=== PATIENT | male | born 1985 | race Caucasian/White ===

== ENCOUNTER 2018-09-29 15:03 | Emergency (ER) | payer OTHER ==
[2018-09-29 15:07] VITALS: BP 164/110; PULSE 77; RESP 16; TEMP 97.5
--- NOTE | 2018-09-29 15:41 | ED ---
General Adult HPI - General Chief complaint: Extremity Injury, Upper Stated complaint: shoulder injury-[facility] Time Seen by Provider: 09/29/18 15:14 Source: patient Mode of arrival: ambulatory Limitations: no limitations - History of Present Illness Initial comments: Patient is a 33-year-old male presenting to emergency Department with a chief complaint of right shoulder pain. Patient reports he was at work when he lifted an object and he felt a "snap" which caused immediate pain. Patient also reports that he is unable to lift his right arm above 20. Patient reports the pain is alleviated at rest. Patient denies any numbness or tingling. Patient reports the pain does not radiate anywhere. Patient reports the pain is located on the posterior aspect of the right shoulder and is only exacerbated with movements. - Related Data Previous Rx's Medication Instructions Recorded Acetaminophen-Codeine 300-30mg 1 each PO Q6H PRN #18 tablet 06/04/14 [Tylenol #3] Ibuprofen [Motrin] 800 mg PO Q8HR #30 tab 06/04/14 Allergies Allergy/AdvReac Type Severity Reaction Status Date / Time No Known Allergies Allergy Verified 09/29/18 15:07 Review of Systems ROS Statement: Those systems with pertinent positive or pertinent negative responses have been documented in the HPI. ROS Other: All systems not noted in ROS Statement are negative. Past Medical History Past Medical History: GERD/Reflux, Skin Disorder Additional Past Medical History / Comment(s): athletes foot History of Any Multi-Drug Resistant Organisms: None Reported Past Surgical History: Hernia Repair Additional Past Surgical History / Comment(s): hiatal herniar repair Past Anesthesia/Blood Transfusion Reactions: Motion Sickness Past Psychological History: No Psychological Hx Reported Smoking Status: Current every day smoker Past Alcohol Use History: None Reported Past Drug Use History: None Reported General Exam - General Exam Comments Initial Comments: General: Well-developed well-nourished distress HEENT: Normocephalic/atraumatic, PERLL, pharynx erythema, swallowing well, EAC no erythema, no exudates, TM clear, no cervical lymph nodes Neck: Supple, nontender, trachea midline Chest/Lungs: Normal respirations, no signs of respiratory distress clear to auscultation bilaterally no wheezes, rales, rhonchi Cardiac: Regular rate and rhythm, normal S1-S2, no murmurs rubs or gallops Abdomen/GI: Soft nontender, bowel sounds equal or quadrant x4, no guarding, no rebound no CVA tenderness Musculoskeletal: Tenderness near the teres minor and teres major of the right shoulder, limited range of motion with abduction above 20, +2 ulnar and radial pulses bilaterally, normal capillary refill, no bony deformity Skin: Warmth, no rashes or lesions, no cyanosis or diaphoresis Neurologic: AAO x 3, CN 2-12 intact, Psychiatric: Mood and affect normal, judgment normal Limitations: no limitations Course Vital Signs 09/29/18 15:05 Temperature 97.5 F L Pulse Rate 77 Respiratory 16 Rate Blood Pressure 164/110 O2 Sat by Pulse 97 Oximetry Medical Decision Making - Medical Decision Making Patient is a 33-year-old male presents emergency Department with a chief complaint of right shoulder pain. X-ray of the right shoulder is negative for acute fracture or dislocations. Patient does not appear to have any bony deformities. Patient given a sling. Patient advised to follow with orthopedics in 1-2 days if symptoms not improved. Based on history, physical examination and imaging I suspect the patient to have suffered damage to the rotator cuff muscles. Patient advised to alternate between Tylenol and ibuprofen for pain control and apply ice compress to minimize symptoms. Strict return parameters were thoroughly discussed the patient was understanding and agreeable. Case discussed with physician. Disposition Clinical Impression: Shoulder pain, acute Disposition: HOME SELF-CARE Condition: Stable Instructions (If sedation given, give patient instructions): Shoulder Pain (ED) Additional Instructions: Please follow up with orthopedics. Alternate between Tylenol and ibuprofen for pain control. Apply ice compresses to minimize symptoms. Please return to emergency department if symptoms worsen. Is patient prescribed a controlled substance at d/c from ED?: No Referrals: Anastasiya Carlos MD [Primary Care Provider] - 1-2 days Conrad Luna DO [Medical Doctor] - 1-2 days Time of Disposition: 16:11
--- NOTE | 2018-09-29 15:41 | XR ---
EXAMINATION TYPE: XR shoulder complete RT DATE OF EXAM: 09/29/2018 CLINICAL HISTORY: Pain in right shoulder after injury. TECHNIQUE: Three views of the right shoulder are obtained. COMPARISON: None. FINDINGS: There is no acute fracture/dislocation evident in the right shoulder. The acromioclavicul ar and glenohumeral joint spaces appear within normal limits. The visualized ribs are intact and unr emarkable. IMPRESSION: There is no acute fracture or dislocation in the right shoulder.
== END 2018-09-29 16:21 | disposition home or self-care (01) ==
LOC: EC 15:03
DX: M25.511 Pain in right shoulder (principal); F17.200 Nicotine dependence, unspecified, uncomplicated
CPT/HCPCS: 99283

== ENCOUNTER → 2018-10-27 | Outpatient (CLI) | payer OTHER ==
--- NOTE | 2018-10-28 14:53 | MR ---
EXAMINATION TYPE: MR shoulder RT wo con DATE OF EXAM: 10/27/2018 COMPARISON: Radiograph dated 319 HISTORY: Right shoulder pain TECHNIQUE: Multiplanar, multisequence imaging of the right shoulder is performed without contrast. FINDINGS: Congruent acromioclavicular joint. Flat acromial undersurface. Mild acromioclavicular joint hypertrop hy. Distal clavicular edema-like bone marrow signal with nondepressed subchondral line compatible wit h subchondral fracture. Small volume of subacromial/subdeltoid bursal fluid. Increased signal within the bursal fibers of sup raspinatus favors mild tendinosis. No high-grade or full-thickness rotator cuff tear. Intact long head biceps tendon. No labral tear identified. No glenohumeral cartilage lesion identified. Intact capsular ligaments. No glenohumeral joint effusion. Edema like signal within teres minor with few fatty streaks compatible with denervation myositis. No compressing lesion is seen along the course of the axillary nerve. Prominent red bone marrow throughout the humerus. No pathologic bone marrow signal replacement. IMPRESSION: 1. Subacute denervation myositis of teres minor. No compressing lesion is seen along the course of th e axillary nerve. 2. Distal clavicular subchondral fracture. 3. No high-grade or full-thickness rotator cuff tear. 4. Mild supraspinatus tendinosis with subacromial/subdeltoid bursitis.
== END | disposition home or self-care (01) ==
LOC: RADMRIMAIN 07:10
PROVIDERS: ATTEND Emergency Medicine
DX: S42.031A Displaced fracture of lateral end of right clavicle, initial encounter for closed fracture (principal)

== ENCOUNTER → 2019-01-05 | Outpatient (CLI) | payer OTHER ==
[2019-01-05 17:50] LABS: African American GFR (CKD) 112.5 (60.0-200.0); Anion Gap 2.7 mmol/L (4.00-12.00); Calcium 8.5 mg/dL (8.7-10.3); Carbon Dioxide 29.3 mmol/L (21.6-31.8); Chol/HDL Ratio 4.81; LDL Cholesterol,Calculated 113.4 mg/dL (0.0-131.0); Potassium 4.7 mmol/L (3.5-5.5); VLDL Calculation 23.6 mg/dL (5.00-40.00)
== END | disposition home or self-care (01) ==
LOC: LABWHC1 10:51
PROVIDERS: ATTEND Family Medicine
DX: I10 Essential (primary) hypertension (principal); Z72.0 Tobacco use
CPT/HCPCS: 36415; 80048; 80061

== ENCOUNTER 2021-04-09 20:03 | Emergency (ER) | payer OTHER ==
[2021-04-09 21:05] VITALS: BP 119/67; PULSE 84; RESP 20; TEMP 98
--- NOTE | 2021-04-09 23:09 | XR ---
EXAMINATION TYPE: XR ribs RT w pa chest xray DATE OF EXAM: 04/09/2021 COMPARISON: NONE HISTORY: Rib pain TECHNIQUE: 5 views FINDINGS: Heart and mediastinum are normal. Lungs are clear of infiltrate. There is no evidence of pl eural effusion or pneumothorax. Right shoulder is intact. There is nondisplaced fracture anterior rig ht seventh rib. IMPRESSION: Acute fracture anterior right seventh rib. No cardiopulmonary disease.
[2021-04-09] MEDS ORDERED: LIDOCAINE 5% PATCH TOPICAL STA (23:55)
[2021-04-09] MEDS ORDERED: KETOROLAC 15 MG/ML 1 ML VIAL IM STA (23:55)
[2021-04-09] MEDS ORDERED: ACET/COD 300 MG/30 MG STARTER PACK 6 TAB BTL PO STA (23:55)
--- NOTE | 2021-04-09 23:57 | ED ---
Fall HPI - General Chief Complaint: Fall Stated Complaint: Fell and hit right side, RT side pain Time Seen by Provider: 04/09/21 23:54 Source: patient Mode of arrival: ambulatory - History of Present Illness Initial Comments: 36-year-old male patient presents the emergency department today for evaluation of right rib pain after a fall. Patient states that he slipped on the ice getting into his car and he fell on top of his metal coffee mug. States that the coffee mug dug into his right ribs. States has been having pain to the area since. Follow occurred earlier this morning prior to him going to work. He denies hitting his head or losing consciousness with the fall. He denies any extremity injury. Denies any neck or back pain. Denies any shortness of breath. Denies cough or hemoptysis. States pain does worsen when he takes a deep breath and moves in certain positions. States he did take Advil earlier in the day. - Related Data Previous Rx's Medication Instructions Recorded Acetaminophen-Codeine 300-30mg 1 each PO Q6H PRN #18 tablet 06/04/14 [Tylenol #3] Ibuprofen [Motrin] 800 mg PO Q8HR #30 tab 06/04/14 Acetaminophen-Codeine 300-30mg 1 tab PO Q6H PRN #12 tablet 04/10/21 [Tylenol #3] Ibuprofen [Motrin] 600 mg PO Q8HR PRN #30 tab 04/10/21 Lidocaine 5% Patch [Lidoderm] 1 patch TOPICAL DAILY #30 patch 04/10/21 Allergies Allergy/AdvReac Type Severity Reaction Status Date / Time No Known Allergies Allergy Verified 04/09/21 21:03 Review of Systems ROS Statement: Those systems with pertinent positive or pertinent negative responses have been documented in the HPI. ROS Other: All systems not noted in ROS Statement are negative. Past Medical History Past Medical History: GERD/Reflux, Skin Disorder Additional Past Medical History / Comment(s): athletes foot History of Any Multi-Drug Resistant Organisms: None Reported Past Surgical History: Hernia Repair Additional Past Surgical History / Comment(s): hiatal herniar repair Past Anesthesia/Blood Transfusion Reactions: Motion Sickness Past Psychological History: No Psychological Hx Reported Smoking Status: Current every day smoker Past Alcohol Use History: Occasional Past Drug Use History: None Reported General Exam Limitations: no limitations General appearance: alert, in no apparent distress, other (This is a well- developed, well-nourished adult male in no acute distress.) Respiratory exam: Present: normal lung sounds bilaterally, chest wall tenderness (Right anterolateral lower ribs). Absent: respiratory distress, wheezes, rales, rhonchi, stridor Cardiovascular Exam: Present: regular rate, normal rhythm, normal heart sounds. Absent: systolic murmur, diastolic murmur, rubs, gallop, clicks GI/Abdominal exam: Present: soft, normal bowel sounds. Absent: distended, tenderness, guarding, rebound, rigid Neurological exam: Present: alert, oriented X3, CN II-XII intact Psychiatric exam: Present: normal affect, normal mood Skin exam: Present: warm, dry, intact, normal color. Absent: rash Course Vital Signs 04/09/21 21:03 Temperature 98.0 F Pulse Rate 84 Respiratory 20 Rate Blood Pressure 119/67 O2 Sat by Pulse 98 Oximetry Medical Decision Making - Medical Decision Making 36-year-old male patient presented to the emergency department today for evaluation of right rib pain after fall injury. Physical examination did reveal right anterolateral rib tenderness. Lungs are clear to auscultation. Vital signs within normal range. Chest x-ray with rib x-rays were obtained and did reveal a right anterior seventh rib fracture. He'll be treated with anti- inflammatory, Tylenol with Codeine, and Lidoderm patches. He is given incentive spirometer for pneumonia prevention. Discharge and follow-up with his primary care physician for recheck in 1-2 days. He is given work restrictions. Return parameters were discussed in detail. He verbalizes understanding and agrees with this plan. My attending is Dr. Hollis. - Radiology Data Radiology results: report reviewed, image reviewed Impression by Dr. Hutson shows acute fracture anterior right seventh rib. No cardiopulmonary disease. Disposition Clinical Impression: Right rib fracture Disposition: HOME SELF-CARE Condition: Good Instructions (If sedation given, give patient instructions): How to Use an Incentive Spirometer (ED), Rib Fracture (ED) Additional Instructions: Apply ice to the painful area. No lifting for the next 4-6 weeks. Follow-up with her primary care physician for recheck in 1-2 days. Return for any new, worsening, or concerning symptoms. Prescriptions: Lidocaine 5% Patch [Lidoderm] 1 patch TOPICAL DAILY #30 patch Ibuprofen [Motrin] 600 mg PO Q8HR PRN #30 tab PRN Reason: Pain Acetaminophen-Codeine 300-30mg [Tylenol #3] 1 tab PO Q6H PRN #12 tablet PRN Reason: Pain Is patient prescribed a controlled substance at d/c from ED?: No Referrals: Ten Rosa [Primary Care Provider] - 1-2 days Time of Disposition: 23:57
== END 2021-04-10 00:17 | disposition home or self-care (01) ==
LOC: EC 20:03
DX: S22.31XA Fracture of one rib, right side, initial encounter for closed fracture (principal); F17.200 Nicotine dependence, unspecified, uncomplicated; W00.0XXA Fall on same level due to ice and snow, initial encounter; Y92.89 Other specified places as the place of occurrence of the external cause
CPT/HCPCS: 71101; 99284; 96372; J1885

== ENCOUNTER 2021-11-24 15:35 | Emergency (ER) | payer OTHER ==
[2021-11-24 17:37] VITALS: RESP 16; TEMP 98.4
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
[2021-11-24 20:19] VITALS: BP 146/80; PULSE 79
== END 2021-11-24 20:18 | disposition home or self-care (01) ==
LOC: EC 15:35
DX: T74.11XA Adult physical abuse, confirmed, initial encounter (principal); K21.9 Gastro-esophageal reflux disease without esophagitis; F17.200 Nicotine dependence, unspecified, uncomplicated; Z79.899 Other long term (current) drug therapy; Y04.8XXA Assault by other bodily force, initial encounter
CPT/HCPCS: 99284

== ENCOUNTER → 2021-12-02 | Outpatient (CLI) | payer OTHER ==
--- NOTE | 2021-12-02 16:36 | XR ---
EXAMINATION TYPE: XR chest 2V DATE OF EXAM: 12/02/2021 COMPARISON: Chest x-ray April 09, 2021 HISTORY: Chest pain after injury. TECHNIQUE: Frontal and lateral views of the chest are obtained. FINDINGS: There is no suspicious focal air space opacity, pleural effusion, or pneumothorax seen. T he cardiac silhouette size is stable and within normal limits. The osseous structures are intact. IMPRESSION: No acute process. No significant change from prior.
--- NOTE | 2021-12-02 16:37 | XR ---
EXAMINATION TYPE: XR forearm RT DATE OF EXAM: 12/02/2021 CLINICAL HISTORY: Injury with pain TECHNIQUE: Two views of the right forearm are obtained. COMPARISON: None. FINDINGS: There is no acute fracture or dislocation seen in the right radius or ulna. The right elb ow and wrist joints appear within normal limits. The overlying soft tissue appears within normal ribeiro its. IMPRESSION: There is no acute fracture or dislocation seen in the right radius or ulna.
== END | disposition home or self-care (01) ==
LOC: RADXRMAIN 16:04
PROVIDERS: ATTEND Emergency Medicine
DX: S29.001A Unspecified injury of muscle and tendon of front wall of thorax, initial encounter (principal); S50.11XA Contusion of right forearm, initial encounter
CPT/HCPCS: 71046

== ENCOUNTER → 2022-06-13 | Outpatient (CLI) | payer OTHER ==
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
== END | disposition home or self-care (01) ==
LOC: RADUSWWP 13:05
PROVIDERS: ATTEND Emergency Medicine
DX: S30.22XA Contusion of scrotum and testes, initial encounter (principal); N43.3 Hydrocele, unspecified
CPT/HCPCS: 76870; 93975

== ENCOUNTER 2022-10-01 05:25 | Emergency (ER) | payer OTHER ==
[2022-10-01 05:31] VITALS: RESP 16; TEMP 98.1
[2022-10-01] MEDS ORDERED: DEXAMETHASONE SOD PHOSPHATE 10 MG/ML 1 ML VIAL IM STA (06:20)
--- NOTE | 2022-10-01 06:22 | ED ---
ENT HPI - General Chief complaint: Allergic Reaction Stated complaint: Allergic Reaction, Facial Swelling Time Seen by Provider: 10/01/22 05:55 Source: patient, RN notes reviewed Mode of arrival: ambulatory Limitations: no limitations - History of Present Illness Initial comments: This is a 37 year old male who presents to the emergency department for concerns of an allergic reaction. Patient states that when he woke up, he had numbness and swelling to the right side of his face, particularly his right lower lip. He has minor tenderness. Also states that his eye is watering, but is not painful. Denies any substantial itching. Patient is not taking any Chris inhibitors. Patient denies any new medications. Also denies coming in contact with any new soaps, lotions, or detergents. Denies any dental pain. Patient did have chickenpox as a kid. Denies any fevers, chills, sore throat, cough, dyspnea, chest pain, palpitations, abdominal pain, nausea, vomiting, diarrhea, back pain, or headaches. - Related Data Previous Rx's Medication Instructions Recorded Acetaminophen-Codeine 300-30mg 1 each PO Q6H PRN #18 tablet 06/04/14 [Tylenol #3] Ibuprofen [Motrin] 800 mg PO Q8HR #30 tab 06/04/14 Acetaminophen-Codeine 300-30mg 1 tab PO Q6H PRN #12 tablet 04/10/21 [Tylenol #3] Ibuprofen [Motrin] 600 mg PO Q8HR PRN #30 tab 04/10/21 Lidocaine 5% Patch [Lidoderm] 1 patch TOPICAL DAILY #30 patch 04/10/21 predniSONE 50 mg PO DAILY 5 Days #5 tab 10/01/22 valACYclovir HCL [Valacyclovir] 1,000 mg PO Q8H 7 Days #21 tab 10/01/22 Allergies Allergy/AdvReac Type Severity Reaction Status Date / Time No Known Allergies Allergy Verified 11/24/21 17:37 Review of Systems ROS Statement: Those systems with pertinent positive or pertinent negative responses have been documented in the HPI. ROS Other: All systems not noted in ROS Statement are negative. Past Medical History Past Medical History: GERD/Reflux, Skin Disorder Additional Past Medical History / Comment(s): athletes foot History of Any Multi-Drug Resistant Organisms: None Reported Past Surgical History: Hernia Repair Additional Past Surgical History / Comment(s): hiatal herniar repair Past Anesthesia/Blood Transfusion Reactions: Motion Sickness Past Psychological History: No Psychological Hx Reported Smoking Status: Current every day smoker Past Alcohol Use History: Occasional Past Drug Use History: None Reported General Exam Limitations: no limitations General appearance: alert, in no apparent distress Head exam: Present: atraumatic, normocephalic, normal inspection Eye exam: Present: normal appearance, PERRL, EOMI. Absent: scleral icterus, conjunctival injection, periorbital swelling ENT exam: Present: other (Mild fullness to the right side of the lower face. Visible and palpable swelling to the right half of the lower lip. Multiple dental caries without any palpable or visible dental abscess. No obvious rash.) Respiratory exam: Present: normal lung sounds bilaterally. Absent: respiratory distress, wheezes, rales, rhonchi, stridor Cardiovascular Exam: Present: regular rate, normal rhythm, normal heart sounds. Absent: systolic murmur, diastolic murmur, rubs, gallop, clicks Neurological exam: Present: alert, oriented X3, CN II-XII intact Psychiatric exam: Present: normal affect, normal mood Skin exam: Present: warm, dry, intact, normal color. Absent: rash Course Vital Signs 10/01/22 05:27 Temperature 98.1 F Pulse Rate 102 H Respiratory 16 Rate Blood Pressure 122/79 O2 Sat by Pulse 97 Oximetry Medical Decision Making - Medical Decision Making This is a 37-year-old male who presents to the emergency department for right- sided facial swelling and tingling. Was pt. sent in by a medical professional or institution? @ -No Did you speak to anyone other than the patient for history? @ -No Did you review nursing and triage notes? @ -Yes, and I agree, it is accurate with regards to the patient's symptoms. Were old charts reviewed? @ -No Differential Diagnosis? @ -Differential Facial Swelling/Tingling: Cellulitis, dental abscess, Mendoza's Palsy, CVA/TIA, shingles EKG interpreted by me (3pts min.)? @ -Not obtained X-rays interpreted by me (1pt min.)? @ -Not obtained CT interpreted by me (1pt min.)? @ -Not obtained U/S interpreted by me (1pt. min.)? @ -Not obtained What testing was considered but not performed? (CT, X-rays, U/S, labs)? Why? @ -None What meds were considered but not given? Why? @ -None Did you discuss the management of the patient with other professionals? @ -No Did you reconcile home meds? @ -No Was smoking cessation discussed for >3mins.? @ -No Was critical care preformed (if so, how long)? @ -No Were there social determinants of health that impacted care today? How? (Homelessness, low income, unemployed, alcoholism, drug addiction, transportation, low edu. Level, literacy, decrease access to med. care, [facility], rehab)? @ -No Was there de-escalation of care discussed even if they declined? (Discuss DNR or withdrawal of care, Hospice)? @ -No What co-morbidities impacted this encounter? (DM, HTN, Smoking, COPD, CAD, Cancer, CVA, Hep., AIDS, mental health diagnosis, sleep apnea, morbid obesity)? @ -None Was patient admitted / discharged? @ -Discharged. Patient's physical examination does not provide an entirely clear etiology. The unilateral involvement is less likely to be related to an allergic reaction. I am unable to palpate a dental abscess and this does not appear to be localized near a tooth. It is possible that this is the early presentation of shingles given the unilateral involvement. This was discussed with the patient. We will go ahead and treat the patient for shingles. Rx for Valtrex provided with dosing instructions reviewed. He is advised to take this with Benadryl. He was also given a prescription for prednisone. Advised that if symptoms do not improve within 2 days, to start taking the Prednisone. He was given very strict return parameters, in that if symptoms worsen, especially if he develops any airway involvement, he should return to the emergency department immediately. He was otherwise advised to follow up with his PCP for reevaluation. Undiagnosed new problem with uncertain prognosis? @ -None Drug Therapy requiring intensive monitoring for toxicity (Heparin, Nitro, Insulin, Cardizem)? @ -None Were any procedures done? @ -None Diagnosis/symptom? @ -Facial swelling Acute, or Chronic, or Acute on Chronic? @ -Acute Uncomplicated (without systemic symptoms) or Complicated (systemic symptoms)? @ -Uncomplicated Side effects of treatment? @ -None Exacerbation, Progression, or Severe Exacerbation] @ -Not applicable Poses a threat to life or bodily function? @ -No Return precautions reviewed in depth, the patient is instructed to return to the emergency department with any new, worsening, or concerning symptoms. Patient verbalized understanding. This case was discussed in detail with the attending ED physician, Dr. Duran. Presentation, findings, and treatment plan discussed in detail as well. Disposition Clinical Impression: Facial swelling Disposition: HOME SELF-CARE Instructions (If sedation given, give patient instructions): Shingles (ED) Additional Instructions: Return to the emergency department with any new, worsening, or concerning symptoms. Take the Valtrex as prescribed for 7 days. Take this along with Benadryl. If you do not have any improvement in symptoms after 2 days, start taking the prednisone daily for 5 days. Alternate with ibuprofen and Tylenol as needed for pain relief. Follow up with your primary care provider in 1-2 days. Prescriptions: predniSONE 50 mg PO DAILY 5 Days #5 tab valACYclovir HCL [Valacyclovir] 1,000 mg PO Q8H 7 Days #21 tab Is patient prescribed a controlled substance at d/c from ED?: No Referrals: Mahad Alan MD [Primary Care Provider] - 1-2 days
[2022-10-01 06:42] VITALS: BP 120/74; PULSE 89
== END 2022-10-01 06:42 | disposition home or self-care (01) ==
LOC: EC 05:25
DX: R22.0 Localized swelling, mass and lump, head (principal); F17.200 Nicotine dependence, unspecified, uncomplicated
CPT/HCPCS: 99283; 96372; J1100

== ENCOUNTER 2022-10-09 13:01 | Emergency (ER) | payer OTHER ==
[2022-10-09 13:31] VITALS: RESP 18
[2022-10-09 14:05] LABS: Appearance,Urine Clear (Clear); Bilirubin,Urine Negative (Negative); Blood,Urine Negative (Negative); Color,Urine Yellow; Glucose,Urine (UA) Negative (Negative); Ketones,Urine Negative (Negative); Leukocyte Esterase,Urine Negative (Negative); Nitrite,Urine Negative (Negative); Protein,Urine Negative (Negative); Specific Gravity,Urine 1.014 (1.001-1.035); Urobilinogen,Urine <2.0 mg/dL (<2.0)
--- NOTE | 2022-10-09 14:09 | ED ---
General Adult HPI - General Chief complaint: Allergic Reaction Stated complaint: Possible allergic reaction Time Seen by Provider: 10/09/22 13:12 Source: patient, RN notes reviewed, old records reviewed Mode of arrival: ambulatory Limitations: no limitations - History of Present Illness Initial comments: 37-year-old male with scrotal swelling. Patient states symptoms began yesterday. He had use restroom without washing his hands after fixing a hydraulic vehicle. He states he had hydraulic fluid on his hands when he did use restroom. He has no dysuria. No vomiting. No fever. No difficulty breathing. - Related Data Previous Rx's Medication Instructions Recorded Acetaminophen-Codeine 300-30mg 1 each PO Q6H PRN #18 tablet 06/04/14 [Tylenol #3] Ibuprofen [Motrin] 800 mg PO Q8HR #30 tab 06/04/14 Acetaminophen-Codeine 300-30mg 1 tab PO Q6H PRN #12 tablet 04/10/21 [Tylenol #3] Ibuprofen [Motrin] 600 mg PO Q8HR PRN #30 tab 04/10/21 Lidocaine 5% Patch [Lidoderm] 1 patch TOPICAL DAILY #30 patch 04/10/21 predniSONE 50 mg PO DAILY 5 Days #5 tab 10/01/22 valACYclovir HCL [Valacyclovir] 1,000 mg PO Q8H 7 Days #21 tab 10/01/22 Cephalexin [Keflex] 500 mg PO Q6HR 7 Days #28 cap 10/09/22 Allergies Allergy/AdvReac Type Severity Reaction Status Date / Time No Known Allergies Allergy Verified 11/24/21 17:37 Review of Systems ROS Statement: Those systems with pertinent positive or pertinent negative responses have been documented in the HPI. ROS Other: All systems not noted in ROS Statement are negative. Past Medical History Past Medical History: GERD/Reflux, Skin Disorder Additional Past Medical History / Comment(s): athletes foot History of Any Multi-Drug Resistant Organisms: None Reported Past Surgical History: Hernia Repair Additional Past Surgical History / Comment(s): hiatal herniar repair Past Anesthesia/Blood Transfusion Reactions: Motion Sickness Past Psychological History: No Psychological Hx Reported Smoking Status: Current every day smoker Past Alcohol Use History: Occasional Past Drug Use History: None Reported General Exam Limitations: no limitations General appearance: alert, in no apparent distress Head exam: Present: atraumatic, normocephalic Eye exam: Present: normal appearance, PERRL ENT exam: Present: normal exam Neck exam: Present: normal inspection. Absent: tenderness Respiratory exam: Present: normal lung sounds bilaterally. Absent: respiratory distress, wheezes Cardiovascular Exam: Present: regular rate, normal rhythm GI/Abdominal exam: Present: soft. Absent: distended, tenderness exam: Present: scrotal swelling. Absent: testicular tenderness, urethral discharge Neurological exam: Present: alert, oriented X3 Psychiatric exam: Present: normal affect, normal mood Skin exam: Present: warm Course Vital Signs 10/09/22 10/09/22 10/09/22 13:07 13:28 13:32 Temperature 97 F L Pulse Rate 97 92 Respiratory 20 18 18 Rate Blood Pressure 123/84 117/82 O2 Sat by Pulse 97 98 Oximetry Medical Decision Making - Medical Decision Making Was pt. sent in by a medical professional or institution ([facility] Davis, CONTRACT RUNNER, urgent care, hospital, or detention...) When possible be specific @ -No Did you speak to anyone other than the patient for history (EMS, parent, family, police, friend...)? What history was obtained from this source @ -No Did you review nursing and triage notes (agree or disagree)? Why? @ -I reviewed and agree with nursing and triage notes Were old charts reviewed (outside hosp., previous admission, EMS record, old EKG, old radiological studies, urgent care reports/EKG's, detention records)? Report findings @ -No old charts were reviewed Differential Diagnosis (chest pain, altered mental status, abdominal pain women, abdominal pain men, vaginal bleeding, weakness, fever, dyspnea, syncope, headache, dizziness, GI bleed, back pain, seizure, CVA, palpatations, mental health, musculoskeletal)? @ -Cellulitis, ALLERGIC reaction, contact dermatitis, hydrocele, intrascrotal abscess EKG interpreted by me (3pts min.). @ -As above X-rays interpreted by me (1pt min.). @ -None done CT interpreted by me (1pt min.). @ -None done U/S interpreted by me (1pt. min.). @ -Ultrasound showing thickening of the skin and hydrocele. What testing was considered but not performed or refused? (CT, X-rays, U/S, labs)? Why? @ -None What meds were considered but not given or refused? Why? @ -None Did you discuss the management of the patient with other professionals (professionals i.e. , PA, CONTRACT RUNNER, lab, RT, psych nurse, psychotherapist social worker, plate grinder, teacher, digital controls technical officer, nurse case management)? Give summary @ -No Was smoking cessation discussed for >3mins.? @ -No Was critical care preformed (if so, how long)? @ -No Were there social determinants of health that impacted care today? How? (Homelessness, low income, unemployed, alcoholism, drug addiction, transportation, low edu. Level, literacy, decrease access to med. care, penitentiary, rehab)? @ -No Was there de-escalation of care discussed even if they declined (Discuss DNR or withdrawal of care, Hospice)? DNR status @ -No What co-morbidities impacted this encounter? (DM, HTN, Smoking, COPD, CAD, Cancer, CVA, ARF, Chemo, Hep., AIDS, mental health diagnosis, sleep apnea, morbid obesity)? @ -None Was patient admitted / discharged? Hospital course, mention meds given and route, prescriptions, significant lab abnormalities, going to OR and other pertinent info. @ 37-year-old male with scrotal swelling. This is nontender. Likely contact dermatitis, ultrasound does show thickening of the skin without intrascrotal abscess. I will cover this patient with oral antibiotics is instructed to use gentle soap to cleanse the scrotum. Return parameters discussed. Undiagnosed new problem with uncertain prognosis? @ -No Drug Therapy requiring intensive monitoring for toxicity (Heparin, Nitro, Insulin, Cardizem)? @ -No Were any procedures done? @ -No Diagnosis/symptom? @ Contact dermatitis of the scrotum Acute, or Chronic, or Acute on Chronic? @ -Acute Uncomplicated (without systemic symptoms) or Complicated (systemic symptoms)? @ -default Side effects of treatment? @ -No Exacerbation, Progression, or Severe Exacerbation? @ -No Poses a threat to life or bodily function? How? (Chest pain, [place], DC, pneumonia, PE, COPD, DKA, ARF, appy, cholecystitis, CVA, Diverticulitis, Homicidal, Suicidal, threat to staff... and all critical care pts) @ -No - Lab Data Lab Results 10/09/22 Range/Units 13:47 Urine Color Yellow Urine Appearance Clear (Clear) Urine pH 6.0 (5.0-8.0) Ur Specific Edelstein 1.014 (1.001-1.035) Urine Protein Negative (Negative) Urine Glucose (UA) Negative (Negative) Urine Ketones Negative (Negative) Urine Blood Negative (Negative) Urine Nitrite Negative (Negative) Urine Bilirubin Negative (Negative) Urine Urobilinogen <2.0 (<2.0) mg/dL Ur Leukocyte Esterase Negative (Negative) Disposition Clinical Impression: Scrotal swelling, Contact dermatitis Disposition: HOME SELF-CARE Condition: Good Instructions (If sedation given, give patient instructions): Contact Dermatitis (ED), Hydrocele (ED) Prescriptions: Cephalexin [Keflex] 500 mg PO Q6HR 7 Days #28 cap Is patient prescribed a controlled substance at d/c from ED?: No Referrals: Mahad Alan MD [Primary Care Provider] - 1-2 days Time of Disposition: 15:11
--- NOTE | 2022-10-09 15:06 | US ---
EXAMINATION TYPE: US scrotum with doppler. Grayscale and color Doppler Duplex imaging performed of damon elias scrotum. DATE OF EXAM: 10/09/2022 COMPARISON: US 06/13/2022 CLINICAL INDICATION: Male, 37 years old with history of scrotal swelling; Scrotal swelling. EXAM MEASUREMENTS: TESTICLES: Right Testicle: 4.2 x 2.7 x 2.8 cm Left Testicle: 4.0 x 3.6 x 2.4 cm EPIDIDYMIS HEAD: Right Epididymis: 1.2 x 1.1 x 2.0 cm Left Epididymis: 0.7 x 1.1 x 1.4 cm Doppler performed to assess for testicular vascularity; bilateral color flow and waveforms are seen. Presence of hydroceles: Yes, right: 1.7 x 2.2 x 1.4 cm. Left: 2.4 x 2.1 x 1.7 cm. Presence of varicoceles: Prominent vessels seen on the left= 3mm. Skin appears thickened measurin.6 cm. Increased vascularity seen surrounding bilateral testicles. IMPRESSION: 1. there is scrotal skin thickening noted with increased flow seen. Correlate for underlying infectio n. 2. Right-sided hydrocele. 3. Left-sided varicoceles.
[2022-10-09 16:10] VITALS: BP 127/81; PULSE 84; TEMP 97.6
== END 2022-10-09 15:34 | disposition home or self-care (01) ==
LOC: EC 13:01
DX: L25.9 Unspecified contact dermatitis, unspecified cause (principal); N50.89 Other specified disorders of the male genital organs; F17.200 Nicotine dependence, unspecified, uncomplicated
CPT/HCPCS: 76870; 81003; 93975; 99284

== ENCOUNTER → 2022-12-02 | Outpatient (CLI) | payer OTHER ==
--- NOTE | 2022-12-02 19:26 | US ---
EXAMINATION TYPE: US scrotum with doppler. Grayscale and color Doppler Duplex imaging performed of damon elias scrotum. DATE OF EXAM: 12/02/2022 COMPARISON: 10/09/2022 CLINICAL INDICATION: Male, 37 years old with history of N50.819 TESTICULAR PAIN, UNSPECIFIED; unable to ejaculate EXAM MEASUREMENTS: TESTICLES: Right Testicle: 4.7 x 2.2 x 2.5 cm Left Testicle: 4.4 x 1.8 x 2.8 cm EPIDIDYMIS HEAD: Right Epididymis: 1.3 cm Left Epididymis: 0.8 cm Doppler performed to assess for testicular vascularity; good bilateral color flow and waveforms are s een. There is no evidence of testicular torsion. Presence of hydroceles: yes. 1.5cm on the right. 4.0cm on the left Presence of varicoceles: prominent vessels bilaterally IMPRESSION: 1. Appropriate arterial and venous spectral waveforms bilaterally. 2. No evidence for intratesticular mass. 3. Bilateral hydroceles left greater than right. 4. No evidence for varicocele.
== END | disposition home or self-care (01) ==
LOC: RADUSWWP 15:51
PROVIDERS: ATTEND Family Medicine
DX: N50.819 Testicular pain, unspecified (principal); N43.3 Hydrocele, unspecified
CPT/HCPCS: 76870; 93975